=== PATIENT | male | born 1965 | race Caucasian/White ===

== ENCOUNTER 2016-09-05 14:30 | Outpatient (CLI) | payer OTHER | END 2016-09-05 14:31 | disposition home or self-care (01) | DX: L03.019 Cellulitis of unspecified finger (principal) ==

== ENCOUNTER 2017-07-02 15:11 | Outpatient (CLI) | payer OTHER ==
[2017-07-02 12:33] LABS: BASOPHILS # (AUTO) 0.1 10^3/uL (0.0-0.1); BASOPHILS % (AUTO) 0.7 %; EOSINOPHILS # (AUTO) 0.2 10^3/uL (0.0-0.7); EOSINOPHILS % (AUTO) 2.3 %; HCT - HEMATOCRIT 44.5 % (42.0-52.0); HGB - HEMOGLOBIN 15.5 g/dL (14.0-18.0); LYMPHOCYTES # (AUTO) 3.2 10^3/uL (1.5-3.5); LYMPHOCYTES % (AUTO) 31.9 %; MEAN CORPUSCULAR HEMOGLOBIN 32.8 pg (27.0-31.0); MEAN CORPUSCULAR HGB CONC 34.9 g/dL (32.0-36.0); MEAN CORPUSCULAR VOLUME 94.1 fL (80.0-94.0); MEAN PLATELET VOLUME 7.8 fL (7.4-11.4); MONOCYTES # (AUTO) 0.9 10^3/uL (0.0-1.0); MONOCYTES % (AUTO) 8.6 %; NEUTROPHILS # (AUTO) 5.7 10^3/uL (1.5-6.6); NEUTROPHILS % (AUTO) 56.5 %; NUCLEATED RED BLOOD CELLS AUTO 0.1 /100WBC; RED BLOOD COUNT 4.73 10^6/uL (4.70-6.10); RED CELL DISTRIBUTION WIDTH 12.6 % (12.0-15.0); UNCORRECTED WHITE BLOOD COUNT 10.1 x10^3/uL; WHITE BLOOD COUNT 10.1 x10^3/uL (4.8-10.8)
[2017-07-02 13:20] LABS: ALBUMIN/GLOBULIN RATIO 1.2 (1.0-2.2); BILIRUBIN,TOTAL 0.7 mg/dL (0.2-1.0); BUN - BLOOD UREA NITROGEN 17 mg/dL (6-20); CALCIUM 9.1 mg/dL (8.5-10.3); CARBON DIOXIDE - CO2 24 mmol/L (21-32); CHLORIDE 109 mmol/L (101-111); CHOL/HDL RATIO 5.1 (<5.0); CHOLESTEROL 184 mg/dL; CREATININE 0.7 mg/dL (0.6-1.2); GFR - MDRD 118 (>89); GLUCOSE 102 mg/dL (70-100); HDL CHOLESTEROL 36 mg/dL; LDL/HDL RATIO 2.9 (<3.6); POTASSIUM 3.9 mmol/L (3.5-5.0); SODIUM 138 mmol/L (135-145); TOTAL PROTEIN 7.1 g/dL (6.7-8.2); TRIGLYCERIDES 215 mg/dL; VLDL CHOLESTEROL 43 mg/dL
== END 2017-07-02 15:12 | disposition home or self-care (01) ==
LOC: LAB.WCP 15:11
PROVIDERS: ATTEND Physician Assistant Medical
DX: Z00.00 Encounter for general adult medical examination without abnormal findings (principal); Z12.5 Encounter for screening for malignant neoplasm of prostate
CPT/HCPCS: 36415; 80050; 80061; 84153

== ENCOUNTER 2019-01-14 08:32 | Outpatient (CLI) | payer OTHER ==
[2019-01-14 14:08] LABS: BASOPHILS # (AUTO) 0.1 10^3/uL (0.0-0.1); BASOPHILS % (AUTO) 0.6 %; EOSINOPHILS # (AUTO) 0.2 10^3/uL (0.0-0.7); HGB - HEMOGLOBIN 16.1 g/dL (14.0-18.0); LYMPHOCYTES # (AUTO) 2.8 10^3/uL (1.5-3.5); MEAN CORPUSCULAR HEMOGLOBIN 31.6 pg (27.0-31.0); MEAN CORPUSCULAR HGB CONC 33.9 g/dL (32.0-36.0); MEAN CORPUSCULAR VOLUME 93.2 fL (80.0-94.0); MEAN PLATELET VOLUME 7.5 fL (7.4-11.4); MONOCYTES # (AUTO) 0.7 10^3/uL (0.0-1.0); MONOCYTES % (AUTO) 6.6 %; NEUTROPHILS # (AUTO) 6.9 10^3/uL (1.5-6.6); NEUTROPHILS % (AUTO) 64.8 %; PLT - PLATELET COUNT 231 10^3/uL (130-450); RED CELL DISTRIBUTION WIDTH 12.6 % (12.0-15.0); WHITE BLOOD COUNT 10.7 x10^3/uL (4.8-10.8)
[2019-01-14 14:30] LABS: ALBUMIN/GLOBULIN RATIO 1.2 (1.0-2.2); ALKALINE PHOSPHATASE 129 IU/L (42-121); ALT ALANINE AMINOTRANSFERASE 31 IU/L (10-60); AST ASPARTATE AMINOTRANSFERASE 30 IU/L (10-42); BILIRUBIN,TOTAL 0.5 mg/dL (0.2-1.0); BUN - BLOOD UREA NITROGEN 17 mg/dL (6-20); CALCIUM 9.1 mg/dL (8.5-10.3); CARBON DIOXIDE - CO2 21 mmol/L (21-32); CHLORIDE 108 mmol/L (101-111); CHOL/HDL RATIO 5.1 (<5.0); CHOLESTEROL 163 mg/dL; CREATININE 0.7 mg/dL (0.6-1.2); GFR - MDRD 117 (>89); GLUCOSE 107 mg/dL (70-100); HDL CHOLESTEROL 32 mg/dL; LDL CHOLESTEROL,CALCULATED 74 mg/dL; LDL/HDL RATIO 2.3 (<3.6); SODIUM 140 mmol/L (135-145); TOTAL PROTEIN 7.4 g/dL (6.7-8.2); VLDL CHOLESTEROL 57 mg/dL
== END 2019-01-14 08:33 | disposition home or self-care (01) ==
LOC: LAB.WCP 08:32
PROVIDERS: ATTEND Family Medicine
DX: I10 Essential (primary) hypertension (principal); E78.1 Pure hyperglyceridemia; Z12.5 Encounter for screening for malignant neoplasm of prostate; K76.0 Fatty (change of) liver, not elsewhere classified
CPT/HCPCS: 36415; 80050; 80061; 83721; 84153

== ENCOUNTER 2020-07-07 06:59 | Day surgery (SDC) | payer OTHER ==
[2020-07-07] MEDS ORDERED: LACTATED RINGERS 1,000 ML IV ONE (07:32)
[2020-07-07] MEDS ORDERED: fentaNYL 250 MCG/5 ML VIAL IVP ONE (08:32)
[2020-07-07] MEDS ORDERED: MIDAZOLAM 2 MG/2 ML VIAL IVP ONE (08:32)
[2020-07-07] MEDS ORDERED: LACTATED RINGERS 500 ML IV ONE (09:30)
[2020-07-07 09:59] VITALS: BP 118/79
== END 2020-07-07 07:00 | disposition home or self-care (01) ==
LOC: SDS 06:59
PROVIDERS: ATTEND Surgery
PROC: 0DBH8ZZ Excision of Cecum, Via Natural or Artificial Opening Endoscopic (ICD-10-PCS; principal; 2020-07-07 08:45)
DX: Z12.11 Encounter for screening for malignant neoplasm of colon (principal); D12.0 Benign neoplasm of cecum; K57.30 Diverticulosis of large intestine without perforation or abscess without bleeding; I10 Essential (primary) hypertension; Z86.718 Personal history of other venous thrombosis and embolism; D66 Hereditary factor VIII deficiency; Z79.82 Long term (current) use of aspirin
CPT/HCPCS: 45380; J3010; J7120

== ENCOUNTER 2020-11-06 08:25 | Outpatient (CLI) | payer OTHER ==
[2020-11-06 12:49] LABS: BASOPHILS # (AUTO) 0.1 10^3/uL (0.0-0.1); BASOPHILS % (AUTO) 0.4 %; EOSINOPHILS # (AUTO) 0.3 10^3/uL (0.0-0.7); EOSINOPHILS % (AUTO) 2.6 %; HCT - HEMATOCRIT 48.3 % (42.0-52.0); HGB - HEMOGLOBIN 16.4 g/dL (14.0-18.0); LYMPHOCYTES % (AUTO) 25.7 %; MEAN CORPUSCULAR HEMOGLOBIN 32.2 pg (27.0-31.0); MEAN CORPUSCULAR VOLUME 94.9 fL (80.0-94.0); MEAN PLATELET VOLUME 9.3 fL (7.4-11.4); MONOCYTES # (AUTO) 0.9 10^3/uL (0.0-1.0); MONOCYTES % (AUTO) 7.9 %; NEUTROPHILS # (AUTO) 7.3 10^3/uL (1.5-6.6); NEUTROPHILS % (AUTO) 62.9 %; PLT - PLATELET COUNT 264 10^3/uL (130-450); RED BLOOD COUNT 5.09 10^6/uL (4.70-6.10); RED CELL DISTRIBUTION WIDTH 12.1 % (12.0-15.0); WHITE BLOOD COUNT 11.6 x10^3/uL (4.8-10.8)
[2020-11-06 13:26] LABS: THYROID STIMULATING HORMONE 2.06 uIU/mL (0.34-5.60)
[2020-11-06 13:34] LABS: ALBUMIN 4.2 g/dL (3.2-5.5); ALBUMIN/GLOBULIN RATIO 1.2 (1.0-2.2); ALKALINE PHOSPHATASE 110 IU/L (42-121); ALT ALANINE AMINOTRANSFERASE 36 IU/L (10-60); AST ASPARTATE AMINOTRANSFERASE 27 IU/L (10-42); BILIRUBIN,TOTAL 1.2 mg/dL (0.2-1.0); BUN - BLOOD UREA NITROGEN 12 mg/dL (6-20); CALCIUM 9.4 mg/dL (8.5-10.3); CARBON DIOXIDE - CO2 25 mmol/L (21-32); CHLORIDE 105 mmol/L (101-111); CHOL/HDL RATIO 5.9 (<5.0); CHOLESTEROL 176 mg/dL; CREATININE 0.7 mg/dL (0.6-1.2); GFR - MDRD 116 (>89); GLUCOSE 123 mg/dL (70-100); HDL CHOLESTEROL 30 mg/dL; LDL CHOLESTEROL,CALCULATED 73 mg/dL; LDL/HDL RATIO 2.4 (<3.6); POTASSIUM 3.4 mmol/L (3.5-5.0); SODIUM 140 mmol/L (135-145); TOTAL PROTEIN 7.6 g/dL (6.7-8.2); TRIGLYCERIDES 363 mg/dL; VLDL CHOLESTEROL 73 mg/dL
== END 2020-11-06 23:59 | disposition home or self-care (01) ==
LOC: LAB.WCP 08:25
PROVIDERS: ATTEND Internal Medicine
DX: I10 Essential (primary) hypertension (principal); E78.1 Pure hyperglyceridemia; D68.59 Other primary thrombophilia; K76.0 Fatty (change of) liver, not elsewhere classified; I82.409 Acute embolism and thrombosis of unspecified deep veins of unspecified lower extremity; Z12.5 Encounter for screening for malignant neoplasm of prostate
CPT/HCPCS: 36415; 80053; 80061; 83721; 84153; 84443; 85025

== ENCOUNTER 2020-11-09 09:24 | Outpatient (CLI) | payer OTHER ==
[2020-11-09 12:39] LABS: ESTIMATED AVERAGE GLUCOSE 117 mg/dL (70-100); HEMOGLOBIN A1c% 5.7 % (4.27-6.07)
[2020-11-09 12:51] LABS: CALCIUM 9.3 mg/dL (8.5-10.3); CREATININE 0.7 mg/dL (0.6-1.2); POTASSIUM 3.5 mmol/L (3.5-5.0)
== END 2020-11-09 23:59 | disposition home or self-care (01) ==
LOC: LAB.WCP 09:24
PROVIDERS: ATTEND Internal Medicine
DX: R73.01 Impaired fasting glucose (principal)
CPT/HCPCS: 36415; 80048; 83036

== ENCOUNTER 2021-07-13 08:00 | Outpatient (CLI) | payer OTHER ==
[2021-07-13 13:34] LABS: ALT ALANINE AMINOTRANSFERASE 25 IU/L (10-60); BUN - BLOOD UREA NITROGEN 17 mg/dL (6-20); CALCIUM 9.1 mg/dL (8.5-10.3); CARBON DIOXIDE - CO2 26 mmol/L (21-32); CHLORIDE 104 mmol/L (101-111); CHOL/HDL RATIO 2.8 (<5.0); CHOLESTEROL 110 mg/dL; CREATININE 0.7 mg/dL (0.6-1.2); GFR - MDRD 116 (>89); GLUCOSE 108 mg/dL (70-100); HDL CHOLESTEROL 40 mg/dL; LDL CHOLESTEROL,CALCULATED 31 mg/dL; LDL/HDL RATIO 0.8 (<3.6); POTASSIUM 4.1 mmol/L (3.5-5.0); SODIUM 140 mmol/L (135-145); TRIGLYCERIDES 193 mg/dL; VLDL CHOLESTEROL 39 mg/dL
== END 2021-07-13 23:59 | disposition home or self-care (01) ==
LOC: LAB.WCP 08:00
PROVIDERS: ATTEND Internal Medicine
DX: I10 Essential (primary) hypertension (principal); E78.1 Pure hyperglyceridemia
CPT/HCPCS: 36415; 80048; 80061; 83721; 84460

== ENCOUNTER 2022-10-23 07:44 | Outpatient (CLI) | payer OTHER ==
[2022-10-23 11:42] LABS: BASOPHILS # (AUTO) 0.1 10^3/uL (0.0-0.1); BASOPHILS % (AUTO) 0.5 %; EOSINOPHILS # (AUTO) 0.2 10^3/uL (0.0-0.7); EOSINOPHILS % (AUTO) 1.9 %; HCT - HEMATOCRIT 41.5 % (42.0-52.0); HGB - HEMOGLOBIN 14.6 g/dL (14.0-18.0); LYMPHOCYTES # (AUTO) 3.5 10^3/uL (1.5-3.5); LYMPHOCYTES % (AUTO) 33.7 %; MEAN CORPUSCULAR HGB CONC 35.2 g/dL (32.0-36.0); MEAN PLATELET VOLUME 9.7 fL (7.4-11.4); MONOCYTES # (AUTO) 0.8 10^3/uL (0.0-1.0); MONOCYTES % (AUTO) 7.3 %; NEUTROPHILS # (AUTO) 5.9 10^3/uL (1.5-6.6); PLT - PLATELET COUNT 197 10^3/uL (130-450); RED BLOOD COUNT 4.56 10^6/uL (4.70-6.10); RED CELL DISTRIBUTION WIDTH 12.2 % (12.0-15.0); WHITE BLOOD COUNT 10.5 x10^3/uL (4.8-10.8)
[2022-10-23 11:48] LABS: ALBUMIN 3.3 g/dL (3.2-5.5); ALBUMIN/GLOBULIN RATIO 1.1 (1.0-2.2); ALKALINE PHOSPHATASE 79 IU/L (42-121); ALT ALANINE AMINOTRANSFERASE 35 IU/L (10-60); AST ASPARTATE AMINOTRANSFERASE 31 IU/L (10-42); BILIRUBIN,TOTAL 0.7 mg/dL (0.2-1.0); BUN - BLOOD UREA NITROGEN 16 mg/dL (6-20); CALCIUM 8.7 mg/dL (8.5-10.3); CARBON DIOXIDE - CO2 27 mmol/L (21-32); CHLORIDE 107 mmol/L (101-111); CHOL/HDL RATIO 5.4 (<5.0); CHOLESTEROL 140 mg/dL; GFR - MDRD 76 (>89); GLUCOSE 112 mg/dL (70-100); HDL CHOLESTEROL 26 mg/dL; POTASSIUM 3.3 mmol/L (3.5-5.0); SODIUM 141 mmol/L (135-145); TOTAL PROTEIN 6.4 g/dL (6.7-8.2); TRIGLYCERIDES 456 mg/dL
[2022-10-23 11:57] LABS: ESTIMATED AVERAGE GLUCOSE 126 mg/dL (70-100); THYROID STIMULATING HORMONE 1.93 uIU/mL (0.34-5.60)
[2022-10-23 12:01] LABS: CREATININE,URINE 109.1 mg/dL; MICROALBUM/CREATININE RATIO,UR 1.8 ug/mg (<30.0); MICROALBUMIN,URINE 0.2 mg/dL (0-300.0)
[2022-10-23 12:12] LABS: LDL CHOLESTEROL,DIRECT 30 mg/dL; LDLD/HDL RATIO 1.2 (<3.6)
== END 2022-10-23 07:45 | disposition home or self-care (01) ==
LOC: LAB.N 07:44
PROVIDERS: ATTEND Internal Medicine
DX: E78.1 Pure hyperglyceridemia (principal); I10 Essential (primary) hypertension; R73.01 Impaired fasting glucose; Z12.5 Encounter for screening for malignant neoplasm of prostate
CPT/HCPCS: 36415; 80053; 80061; 82043; 82570; 83036; 83721; 84153; 84443; 85025

== ENCOUNTER 2023-07-08 08:49 | Outpatient (CLI) | payer OTHER ==
[2023-07-08 12:23] LABS: ALBUMIN 3.7 g/dL (3.2-5.5); ALBUMIN/GLOBULIN RATIO 1.5 (1.0-2.2); ALKALINE PHOSPHATASE 86 IU/L (42-121); ALT ALANINE AMINOTRANSFERASE 38 IU/L (10-60); AST ASPARTATE AMINOTRANSFERASE 39 IU/L (10-42); BILIRUBIN,TOTAL 0.5 mg/dL (0.2-1.0); BUN - BLOOD UREA NITROGEN 19 mg/dL (6-20); CARBON DIOXIDE - CO2 25 mmol/L (21-32); CHLORIDE 105 mmol/L (101-111); CHOL/HDL RATIO 10.9 (<5.0); CHOLESTEROL 239 mg/dL; CREATININE 1.1 mg/dL (0.6-1.3); GFR - MDRD 68 (>89); GLUCOSE 102 mg/dL (74-104); HDL CHOLESTEROL 22 mg/dL; POTASSIUM 3.8 mmol/L (3.5-4.5); SODIUM 138 mmol/L (135-145); TOTAL PROTEIN 6.2 g/dL (6.4-8.9)
[2023-07-08 12:31] LABS: ESTIMATED AVERAGE GLUCOSE 123 mg/dL (70-100); HEMOGLOBIN A1c% 5.9 % (4.27-6.07)
[2023-07-08 12:37] LABS: TRIGLYCERIDES 1274 mg/dL (48-352)
[2023-07-08 13:14] LABS: LDL CHOLESTEROL,DIRECT 30 mg/dL (75-193); LDLD/HDL RATIO 1.4 (<3.6)
== END 2023-07-08 08:50 | disposition home or self-care (01) ==
LOC: LAB.N 08:49
PROVIDERS: ATTEND Internal Medicine
DX: E78.1 Pure hyperglyceridemia (principal); R73.01 Impaired fasting glucose
CPT/HCPCS: 36415; 80053; 80061; 83036; 83721

== ENCOUNTER 2023-10-07 08:27 | Outpatient (CLI) | payer OTHER ==
[2023-10-07 12:17] LABS: BASOPHILS # (AUTO) 0.1 10^3/uL (0.0-0.1); BASOPHILS % (AUTO) 0.6 %; EOSINOPHILS # (AUTO) 0.3 10^3/uL (0.0-0.7); HCT - HEMATOCRIT 45.9 % (42.0-52.0); HGB - HEMOGLOBIN 15.3 g/dL (14.0-18.0); LYMPHOCYTES # (AUTO) 3.1 10^3/uL (1.5-3.5); MEAN CORPUSCULAR HEMOGLOBIN 31.7 pg (27.0-31.0); MEAN CORPUSCULAR HGB CONC 33.3 g/dL (32.0-36.0); MEAN PLATELET VOLUME 9.4 fL (7.4-11.4); MONOCYTES # (AUTO) 0.6 10^3/uL (0.0-1.0); MONOCYTES % (AUTO) 7.4 %; NEUTROPHILS # (AUTO) 4.2 10^3/uL (1.5-6.6); NEUTROPHILS % (AUTO) 51.2 %; PLT - PLATELET COUNT 233 10^3/uL (130-450); RED BLOOD COUNT 4.83 10^6/uL (4.70-6.10); RED CELL DISTRIBUTION WIDTH 12.5 % (12.0-15.0); WHITE BLOOD COUNT 8.3 x10^3/uL (4.8-10.8)
[2023-10-07 12:54] LABS: ESTIMATED AVERAGE GLUCOSE 120 mg/dL (70-100); HEMOGLOBIN A1c% 5.8 % (4.27-6.07)
[2023-10-07 12:59] LABS: ALBUMIN 3.8 g/dL (3.2-5.5); ALBUMIN/GLOBULIN RATIO 1.3 (1.0-2.2); ALKALINE PHOSPHATASE 67 IU/L (42-121); ALT ALANINE AMINOTRANSFERASE 16 IU/L (10-60); AST ASPARTATE AMINOTRANSFERASE 18 IU/L (10-42); BILIRUBIN,TOTAL 0.4 mg/dL (0.2-1.0); BUN - BLOOD UREA NITROGEN 16 mg/dL (6-20); CALCIUM 9.3 mg/dL (8.5-10.3); CARBON DIOXIDE - CO2 29 mmol/L (21-32); CHLORIDE 108 mmol/L (101-111); CHOL/HDL RATIO 2.8 (<5.0); CHOLESTEROL 94 mg/dL; GFR - MDRD 76 (>89); GLUCOSE 125 mg/dL (74-104); HDL CHOLESTEROL 33 mg/dL; LDL CHOLESTEROL,CALCULATED 23 mg/dL; LDL CHOLESTEROL,DIRECT 35 mg/dL (75-193); LDL/HDL RATIO 0.7 (<3.6); POTASSIUM 3.9 mmol/L (3.5-4.5); SODIUM 142 mmol/L (135-145); TOTAL PROTEIN 6.7 g/dL (6.4-8.9); TRIGLYCERIDES 190 mg/dL (48-352); VLDL CHOLESTEROL 38 mg/dL
== END 2023-10-07 08:28 | disposition home or self-care (01) ==
LOC: LAB.N 08:27
PROVIDERS: ATTEND Internal Medicine
DX: I10 Essential (primary) hypertension (principal); E78.1 Pure hyperglyceridemia; R73.01 Impaired fasting glucose; Z12.5 Encounter for screening for malignant neoplasm of prostate
CPT/HCPCS: 36415; 80053; 80061; 83036; 83721; 84153; 85025

== ENCOUNTER 2023-11-17 08:02 | Outpatient (CLI) | payer OTHER ==
--- NOTE | 2023-11-19 13:51 | Ultrasound Report ---
PROCEDURE: Arterial Visceral Complete INDICATIONS: Poorly controlled hypertension TECHNIQUE: Real time scanning was performed of both kidneys, followed by Color and pulsed Doppler in terrogation of the renal vessels. COMPARISON: ct ap 08/30/15 FINDINGS: Aortic peak systolic velocity: 87 cm/s. Brachial material blood pressures: Right 181/83, left 189/94 Right side: Granger-scale imaging: Kidney is 12.2 cm long. No hydronephrosis. No nephrolithiasis. Renal cortex i s normal in echogenicity. No suspicious solid renal masses. Proximal renal artery peak systolic velocity: Not visualized Mid renal artery peak systolic velocity: not visualized Distal renal artery peak systolic velocity: 229 cm/s. Renal vein: Patent, without thrombus. Peak renal/aortic ratio (RAR): 2.63, abnormal. Left side: Granger-scale imaging: Kidney is 12.7 cm long. No hydronephrosis. No nephrolithiasis. Renal cortex i s normal in echogenicity. No suspicious solid renal masses. Proximal renal artery peak systolic velocity: Not visualized Mid-renal artery peak systolic velocity: Not visualized Distal renal artery peak systolic velocity: 149 cm/s. Renal vein: Patent, without thrombus. Peak renal/aortic ratio (RAR): 1.7. The resistive indices appear normal except for slight elevation in the left superior cortex up to 0.7 6; this is of questionable clinical significance. Note is made of a liver lesion measuring 2.8 x 2.1 x 2.6 cm. Left lobe liver lesion was seen on prior study on 08/30/2015 in retrospect; if indicated, CT of the abdomen and pelvis with contrast may provi de additional diagnostic benefit IMPRESSION: 1. Extremely limited study; the proximal and mid renal arteries were not seen bilaterally. 2. A 2.8 cm left lobe liver lesion; a left lobe liver lesion was seen on prior CT dated 08/30/2015; po ssibly a hemangioma; if if clinically dictated, CT of the abdomen and pelvis with contrast may provid e additional diagnostic benefit Reviewed by: Valentin Martinez MD on 11/19/2023 1:50 PM PDT Approved by: Valentin Martinez MD on 11/19/2023 1:50 PM PDT Station ID: [id number]
== END 2023-11-17 08:03 | disposition home or self-care (01) ==
LOC: DI 08:02
PROVIDERS: ATTEND Internal Medicine
DX: K76.9 Liver disease, unspecified (principal); I10 Essential (primary) hypertension
CPT/HCPCS: 93975

== ENCOUNTER 2024-04-05 01:29 | Emergency (ER) | payer OTHER ==
[2024-04-05 02:05] LABS: BASOPHILS # (AUTO) 0.1 10^3/uL (0.0-0.1); BASOPHILS % (AUTO) 0.5 %; EOSINOPHILS # (AUTO) 0.5 10^3/uL (0.0-0.7); EOSINOPHILS % (AUTO) 3.4 %; HCT - HEMATOCRIT 36.5 % (42.0-52.0); HGB - HEMOGLOBIN 12.7 g/dL (14.0-18.0); LYMPHOCYTES # (AUTO) 3.4 10^3/uL (1.5-3.5); LYMPHOCYTES % (AUTO) 23.2 %; MEAN CORPUSCULAR HEMOGLOBIN 32.9 pg (27.0-31.0); MEAN CORPUSCULAR HGB CONC 34.8 g/dL (32.0-36.0); MEAN CORPUSCULAR VOLUME 94.6 fL (80.0-94.0); MEAN PLATELET VOLUME 8.4 fL (7.4-11.4); MONOCYTES % (AUTO) 6.9 %; NEUTROPHILS # (AUTO) 9.4 10^3/uL (1.5-6.6); NEUTROPHILS % (AUTO) 64.9 %; PLT - PLATELET COUNT 224 10^3/uL (130-450); RED BLOOD COUNT 3.86 10^6/uL (4.70-6.10); WHITE BLOOD COUNT 14.6 x10^3/uL (4.8-10.8)
--- NOTE | 2024-04-05 02:05 | ED Physician Documentation ---
<Vickie Higgins - Last Filed: 04/05/24 07:12> History of Present Illness - Stated complaint Stated Complaint: L LEG SWELLING - Chief complaint Chief Complaint: Ext Problem - History obtained from History obtained from: Patient - Additonal information Additional information: 58-year-old man with past medical history of unprovoked DVT presents with left lower extremity swelling for the past 5 days with tightness and pain in the left calf. He noticed discoloration worsening today and thus came to the emergency department. Patient has full sensation and movement of the left lower extremity. PD PAST MEDICAL HISTORY - Past Medical History Past Medical History: Yes Cardiovascular: Hypertension, Deep vein thrombosis - Past Surgical History Past Surgical History: No - Present Medications Home Medications: Ambulatory Orders Medication Instructions Recorded Confirmed Aspirin [Aspirin EC] 81 mg ORAL DAILY 07/07/20 04/05/24 Doxazosin Mesylate [Cardura Xl] 8 mg PO DAILY PM 04/05/24 04/05/24 Fenofibrate Nanocrystallized 145 mg PO DAILY 04/05/24 04/05/24 [Tricor] Meloxicam 7.5 mg PO DAILY 04/05/24 04/05/24 Metoprolol Succinate 200 mg PO DAILY 04/05/24 04/05/24 Rosuvastatin Calcium 10 mg PO DAILY PM 04/05/24 04/05/24 Spironolactone [Aldactone] 25 mg PO DAILY 04/05/24 04/05/24 Valsartan 320 mg PO DAILY 04/05/24 04/05/24 cloNIDine [Catapres] 0.1 mg PO BID 04/05/24 04/05/24 - Allergies Allergies/Adverse Reactions: Allergies Allergy/AdvReac Type Severity Reaction Status Date / Time No Known Drug Allergies Allergy Verified 04/05/24 01:46 - Social History Does the pt smoke?: Yes Smoking Status: Current every day smoker Does the pt drink ETOH?: Yes Does the pt have substance abuse?: No PD ED PE NORMAL - Vitals Vital signs reviewed: Yes - General General: Alert and oriented X 3, No acute distress, Well developed/nourished - HEENT HEENT: Atraumatic, PERRL, EOMI - Derm Derm: Other (Significant erythema to left lower extremity from just above the knee extending distally.) - Extremities Extremities: Other (Left lower extremity DP and PT pulse nonpalpable. Right lower extremity DP and PT pulse 2+. significant swelling to LLE compared to right. 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 Patient would benefit from emergent evaluation by vascular surgery for possible thrombectomy or catheter directed tpa. cta LLE ordered. Decision made to transfer the patient with concern for phlegmasia cerulea dolens at 1:45 AM. Our [facility] is now working on it. Plan to start heparin for now. 2:15am - I was updated that vascular surgery at [facility] are unable to accept until CTA of the LLE is complete and faxed over. 4:45am - CTA is complete however the interpretation is not done. our [facility] called [email or web address] to ask for an update. still haven't heard back in regards to transfer. 5am - CTA interpretation is in place. patient has multivessel disease of the left leg including occlusion of anterior tibial and peroneal artery. 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 [facility] has not gotten back with a physician after over 3 hours of consult. I am attempting to contact as well for possible ED/ED transfer since [facility] has not been receptive to transfer thus far. 5:15am- d/w transfer center [facility] for transfer, who will page vascular surgery. d/w Dr. Mccord, vascular surgeon with who doubts phlegmasia and does not recommend transfer at this time based on CTA imaging. She recommends CT v or ultrasound and wrap him in luis a wrap then reevaluate. Plan to endorse to incoming daytime ED MD at 7am shift change. Departure - Departure Clinical Impression: DVT (deep venous thrombosis) Condition: Stable Forms: PCP List <Gabe Gallardo - Last Filed: 04/05/24 11:04> Results - Vitals Vitals: Vital Signs - 24 hr 04/05/24 04/05/24 04/05/24 01:40 02:10 04:00 Temperature 36.7 C Heart Rate 68 70 67 Respiratory 18 18 18 Rate Blood Pressure 157/73 H 146/69 H 125/75 O2 Saturation 99 97 99 04/05/24 04/05/24 04/05/24 06:00 08:00 09:15 Temperature 36.5 C Heart Rate 62 62 59 L Respiratory 20 22 15 Rate Blood Pressure 116/73 130/78 130/78 O2 Saturation 96 97 98 04/05/24 10:21 Temperature Heart Rate 56 L Respiratory 19 Rate Blood Pressure 128/79 O2 Saturation 96 Oxygen O2 Source Room air - Labs Labs: Laboratory Tests 04/05/24 04/05/24 04/05/24 02:00 02:00 02:00 WBC 14.6 H RBC 3.86 L Hgb 12.7 L Hct 36.5 L MCV 94.6 H MCH 32.9 H MCHC 34.8 RDW 12.0 Plt Count 224 MPV 8.4 Neut # (Auto) 9.4 H Lymph # (Auto) 3.4 Beltrami # (Auto) 1.0 Eos # (Auto) 0.5 Baso # (Auto) 0.1 Absolute Nucleated RBC 0.00 Nucleated RBC % 0.0 APTT D-Dimer 940.2 H Sodium 134 L Potassium 4.5 Chloride 104 Carbon Dioxide 21 Anion Gap 9.0 BUN 29 H Creatinine 1.3 Estimated GFR (MDRD) 56 L Glucose 113 H Calcium 9.4 Total Bilirubin 0.5 AST 19 ALT 23 Alkaline Phosphatase 105 Total Creatine Kinase Total Protein 7.0 Albumin 4.0 Globulin 3.0 Albumin/Globulin Ratio 1.3 Lipase 221 H 04/05/24 04/05/24 04/05/24 02:00 02:00 08:36 WBC 14.9 H RBC 3.71 L Hgb 12.0 L Hct 35.2 L MCV 94.9 H MCH 32.3 H MCHC 34.1 RDW 12.0 Plt Count 218 MPV 8.7 Neut # (Auto) Lymph # (Auto) Beltrami # (Auto) Eos # (Auto) Baso # (Auto) Absolute Nucleated RBC Nucleated RBC % APTT 34.4 H D-Dimer Sodium Potassium Chloride Carbon Dioxide Anion Gap BUN Creatinine Estimated GFR (MDRD) Glucose Calcium Total Bilirubin AST ALT Alkaline Phosphatase Total Creatine Kinase 47 Total Protein Albumin Globulin Albumin/Globulin Ratio Lipase 04/05/24 08:36 WBC RBC Hgb Hct MCV MCH MCHC RDW Plt Count MPV Neut # (Auto) Lymph # (Auto) Beltrami # (Auto) Eos # (Auto) Baso # (Auto) Absolute Nucleated RBC Nucleated RBC % APTT 155.0 H* D-Dimer Sodium Potassium Chloride Carbon Dioxide Anion Gap BUN Creatinine Estimated GFR (MDRD) Glucose Calcium Total Bilirubin AST ALT Alkaline Phosphatase Total Creatine Kinase Total Protein Albumin Globulin Albumin/Globulin Ratio Lipase
[2024-04-05] MEDS ORDERED: iohexoL-300 100 ML VIAL ONE ×2 (02:08→02:24)
[2024-04-05 02:22] LABS: ALBUMIN/GLOBULIN RATIO 1.3 (1.0-2.2); BILIRUBIN,TOTAL 0.5 mg/dL (0.2-1.0); CALCIUM 9.4 mg/dL (8.5-10.3); CREATININE 1.3 mg/dL (0.6-1.3); POTASSIUM 4.5 mmol/L (3.5-4.5)
[2024-04-05] MEDS: HEPARIN 25000UNITS/500ML (D5W) 25,000 UNIT/500 ML BAG IV SCH (02:33)
--- NOTE | 2024-04-05 07:37 | CT Report ---
PROCEDURE: Angio Lower Extremity LT INDICATIONS: Phlegmasia cerulea dolens TECHNIQUE: CT angiogram from the left iliac crest to the toes following the administration of IV cont rast. 3-D surface rendering performed. COMPARISON: None. FINDINGS: Diffuse soft tissue edema within the left lower extremity. Mild disease within left common iliac edie ry. Normal left external iliac artery. [employer]: Mild multifocal disease SFA: Mild multifocal disease Popliteal artery: Mild multifocal disease Vessels of the trifurcation: Mild to moderate multifocal disease. The anterior tibial artery and zach vincent arteries are occluded at the level of the ankle. The posterior tibial artery is patent. IMPRESSION: Multiple moderate multifocal disease within the vessels of the trifurcation with occlusion of the ant erior tibial and peroneal artery at the level of the ankle. Findings are concordant with preliminary interpretation provided by [facility]. Reviewed by: Vivienne Gonzales MD, PhD on 04/05/2024 7:35 AM PDT Approved by: Vivienne Gonzales MD, PhD on 04/05/2024 7:35 AM PDT Station ID: [id number]
--- NOTE | 2024-04-05 07:48 | Ultrasound Report ---
PROCEDURE: Duplex Ext Veins Left INDICATIONS: LT LEG PAIN AND SWELLING TECHNIQUE: Real-time imaging, as well as color and pulse Doppler interrogation, were performed of the lower extr emity deep veins from the inguinal ligament to the popliteal fossa. Attempted visualization of the ca lf veins was performed. COMPARISON: None. FINDINGS: There is an extensive occlusive thrombosis extending from left external iliac vein through the left common femoral, left femoral, and left popliteal veins. The calf veins are not well visuali zed due to overlying edema. IMPRESSION: Extensive occlusive deep vein thrombosis within the left lower extremity. Agree with preliminary interpretation provided to the ordering provider at time of imaging completion by the ophthalmic technologist. Findings are concordant with preliminary interpretation provided by [facility]. Reviewed by: Vivienne Gonzales MD, PhD on 04/05/2024 7:47 AM PDT Approved by: Vivienne Gonzales MD, PhD on 04/05/2024 7:47 AM PDT Station ID: [id number]
[2024-04-05 08:47] LABS: HCT - HEMATOCRIT 35.2 % (42.0-52.0); MEAN CORPUSCULAR HEMOGLOBIN 32.3 pg (27.0-31.0); MEAN CORPUSCULAR HGB CONC 34.1 g/dL (32.0-36.0); MEAN CORPUSCULAR VOLUME 94.9 fL (80.0-94.0); MEAN PLATELET VOLUME 8.7 fL (7.4-11.4); RED BLOOD COUNT 3.71 10^6/uL (4.70-6.10); WHITE BLOOD COUNT 14.9 x10^3/uL (4.8-10.8)
[2024-04-05] MEDS: iohexoL-300 100 ML VIAL IVP ONE (09:04)
--- NOTE | 2024-04-05 09:15 | ED Physician Documentation ---
ED Addendum - Addendum Addendum: 04/05/24 09:[address] Aguirre who is now on-call for vascular surgery at the . I reviewed the findings and exam with him. He did have imaging of both the CT angiogram of the leg and the ultrasound. He feels there is adequate enough blood flow through the anterior tibial down the leg and given the exam of some capillary refill and mostly issues now with swelling redness and edema, that the arterial side does not the acute process but the DVT is the current symptom and issues. He does agree if likely chronic peripheral vascular arterial disease and suggests further evaluation if needed. However at this point he would start on oral anticoagulants. He does not feel given the degree of patient's pain and such that interventional radiology or thrombolytics are needed. In discussion with the patient, he states his pain is moderate and he is able to walk on it but fell as he did more walking on it than he ought to over the weekend. He would like to go home and feels his pain is tolerable. He does not have any dyspnea nor chest pain. He has been on heparin now for several hours but will start on apixaban with with the hospitalist damian. I will offered him some crutches and he accepted for decreased weightbearing. He is to use Abhijeet wrap elevate and rest his legs or compressive socks to help with edema. He would like a note for several days off work. He asked for just 1 but I think he needs more than that. I will prescribe him some pain medicine along with the Eliquis 10 mg twice daily for a week and then 5 mg twice daily. He has to follow-up with his primary care. Diagnosis: 1. Left leg edema and pain 2. Extensive DVT 3. Peripheral artery disease, chronic Disposition: The patient discharged home in stable condition.
[2024-04-05] MEDS: APIXABAN 5 MG TABLET PO STA (09:19)
[2024-04-05] MEDS: ACETAMINOPHEN 500 MG TABLET PO STA (09:19)
[2024-04-05 11:32] VITALS: BP 137/72; O2SAT 99
== END 2024-04-05 11:41 | disposition home or self-care (01) ==
LOC: ED 01:29
DX: I82.522 Chronic embolism and thrombosis of left iliac vein (principal); I82.512 Chronic embolism and thrombosis of left femoral vein; I82.532 Chronic embolism and thrombosis of left popliteal vein; I73.9 Peripheral vascular disease, unspecified; R60.0 Localized edema; I10 Essential (primary) hypertension; Z79.82 Long term (current) use of aspirin; F17.200 Nicotine dependence, unspecified, uncomplicated; Z79.01 Long term (current) use of anticoagulants
CPT/HCPCS: 36415; 73706; 80053; 82550; 83690; 85025; 85027; 85379; 85730; 93971; 96374; 99284; A9270; Q9967